=== PATIENT | female | born 1995 | race African-American/Black ===

== ENCOUNTER 2019-12-28 13:34 | Outpatient (CLI) | payer BC, SELFPAY ==
--- NOTE | ~2019-12-28 | US_ITS ---
EXAMINATION: US OB /maternal detail DATE: 12/28/2019 14:38 INDICATION: survey TECHNIQUE: Multiple obstetric sonographic images performed. FINDINGS: No prior studies for comparison. There is a single living fetus in breech presentation. The placenta is posterior without placenta pr evia. Amniotic fluid volume is subjectively normal. cardiac activity and movement is noted with a heart rate of 128 beats per minute. The following anatomy was identified as normal: 4 chamber heart 3 vessel cord cord insertion kidneys urinary bladder stomach spine diaphragm ventricles cisterna magna cerebellum The following biometric data were obtained: BPD: 44mm corresponds to gestational age 19 weeks 1 days. Head circumference: 159 mm corresponds to gestational age 18 weeks 5 days. Abdominal circumference: 138 mm corresponds to gestational age 19 weeks 1 days. Femur length: 29 mm corresponds to gestational age 18 weeks 5 days. Head circumference to abdominal circumference ratio: 1.15 (normal range for expected gestational age is 1.09-1.26). Estimated weight: 267 grams +/- 40 grams using Hadlock method. IMPRESSION: 1: Single living intrauterine with an estimated gestational age of 19weeks 0days by current ultrasound measurements, with an EDC of 05/23/2020 in breech presentation. 2. Normal survey. Reviewed, dictated and finalized at location A. IMPRESSION: 1: Single living intrauterine with an estimated gestational age of 19 weeks 0days by current ultrasound measurements, with an EDC of 05/23/2020 in br eech presentation. 2. Normal survey.
== END 2019-12-28 13:35 | disposition home or self-care (01) ==
PROVIDERS: Visit Provider Obstetrics & Gynecology
DX: Z34.90 Encounter for supervision of normal pregnancy, unspecified, unspecified trimester (principal); Z3A.19 19 weeks gestation of pregnancy
CPT/HCPCS: 76805

== ENCOUNTER 2020-02-28 16:13 | Outpatient (CLI) | payer BC, SELFPAY ==
--- NOTE | ~2020-02-28 | US_ITS ---
EXAMINATION: US OB follow up EXAM DATE: 02/28/2020 17:07 INDICATION: Routine care. Follow-up. Late 2nd trimester. TECHNIQUE: Pelvic obstetrical transabdominal sonogram was performed by a technologist. There are mu ltiple grayscale and Doppler images available for interpretation. Comparison is made to prior examina tion from 12/28/2019. FINDINGS: There is a single fetus identified in vertex presentation with a heart rate of 131 beats pe r minute. The placenta is located in the fundal position. There is no sonographic evidence of retrop lacental hemorrhage identified. The amniotic fluid index is 13.7 centimeters, which is normal. BIOMETRIC DATA: Biparietal diameter (BPD): 6.9cm ----------------> 27 weeks 5 days. Head circumference (HC): 25.3 cm ----------------> 27 weeks 3 days. Abdominal circumference (AC): 22.9 cm ----------> 27 weeks 2 days. Femur length (FL): 5.2 cm --------------------------> 27 weeks 4 days. These measurements are concordant. HC/AC ratio is 1.10 (The 5th -- 95th percentile range is 1.03-1.22. Estimated weight is 1071 g +/- 161 g. This is the 26th percentile when the currently reported clinical gestation age 27 weeks 5 days, clinical estimated date of delivery (RIYA-OPE) 05/24/2020 is us ed. estimated gestational age based on measurements from this exam is 27 weeks 4 days, with an estimated date of delivery (RIYA-AUA) 06/14. IMPRESSION: 1. Single fetus in vertex presentation with heart rate 131 beats per minute. 2. Estimated weight of 1071 grams, 26th percentile using the currently reported clinical gesta tion age of 27 weeks 5 days, RIYA(OPE) 05/24. 3. Normal LOVE of 13.7 cm. Reviewed, dictated and finalized at location A. IMPRESSION: 1. Single fetus in vertex presentation with heart rate 131 beats per minute. 2. Estimated weight of 1071 grams, 26th percentile using the currently r eported clinical gestation age of 27 weeks 5 days, RIYA(OPE) 12/. 3. Normal LOVE of 13.7 cm.
== END 2020-02-28 16:14 | disposition home or self-care (01) ==
PROVIDERS: PCP Obstetrics & Gynecology; Visit Provider Obstetrics & Gynecology
DX: Z34.92 Encounter for supervision of normal pregnancy, unspecified, second trimester (principal); Z3A.27 27 weeks gestation of pregnancy
CPT/HCPCS: 76816

== ENCOUNTER 2020-03-29 11:35 | Outpatient (CLI) | payer BC, SELFPAY ==
--- NOTE | ~2020-03-29 | US_ITS ---
EXAMINATION: US OB follow up DATE: 03/29/2020 12:34 INDICATION: Estimated size less than expected for estimated gestational age during third trimester pr egnancy. TECHNIQUE: Real-time ultrasound of the pelvis was performed. The interpreting radiologist was not pre sent for the study. COMPARISON: 02/28/2020 FINDINGS: There is a single living fetus in vertex presentation. The placenta is fundal. heart rate is 1 25 beats per minute (bpm). The amniotic fluid index is 15.4 cm, which is normal (5th%-95%: 8.6-24.2 cm at 22 weeks estimated gestational age). The following biometric data were obtained: BPD: 8.1 cm -> 32 weeks 5 days Head circumference: 25.9 cm -> 31 weeks 5 days Abdominal circumference: 28.7 cm -> 32 weeks 5 days Femur length: 6.1 cm -> 31 weeks 6 days These measurements are concordant. Head circumference to abdominal circumference ratio: 1.01 (normal range 0.96-1.13). Estimated weight: 1948 g (+/-) 292 g. or 4 lbs. 5 oz. (+/-) 10 oz. IMPRESSION: 1. Single living fetus in vertex presentation with heart rate of 125 bpm. 2. Normal amniotic fluid index of 15.4 cm. 3. Estimated weight is 49th percentile by Hadlock criteria when 05/24/2020 is used as the estima isaias date of delivery (RIYA). Please correlate with clinical information or earlier ultrasounds for mos t accurate RIYA. Reviewed, dictated and finalized at location A. IMPRESSION: 1. Single living fetus in vertex presentation with heart rate of 125 bpm. 2. Normal amniotic fluid index of 15.4 cm. 3. Estimated weight is 49th percentile by Hadlock criteria when 05/24/2020 is used as the estimated date of delivery (RIYA). Please correlate with clinica l information or earlier ultrasounds for most accurate RIYA.
== END 2020-03-29 11:36 | disposition home or self-care (01) ==
PROVIDERS: PCP Obstetrics & Gynecology; Visit Provider Obstetrics & Gynecology
DX: Z34.90 Encounter for supervision of normal pregnancy, unspecified, unspecified trimester (principal)
CPT/HCPCS: 76816

== ENCOUNTER 2020-05-12 09:23 | Inpatient (IN) | payer BC, SELFPAY ==
[2020-05-12] VITALS (65 sets, daily range): BP systolic 56–150; BP diastolic 21–107; PULSE 76–123; RESP 16; TEMP 36.6–37; O2SAT 100
--- NOTE | 2020-05-12 09:23 | LDADM ---
This patient, Mariana Gomez, was admitted to Labor/Delivery/Recovery 108 on 05/12/20 at 09:23. Plans for labor, pain management and were discussed with patient. Patient/family oriented to hospital policies and general routines including ID bracelet, bed and alarms, visiting hours, pain management, procedures, bathroom and other care routines, personal items, smoking policy, room service/diet and guest tray routines, security routines, and visiting hours. Patient/Family are encouraged to report perceived risks to care and to ask questions if they do not understand what they are told or what they should do. See OBIX for further documentation.
[2020-05-12] MEDS: LACTATED RINGERS 1,000 ML 125 ML IV CONT ×2 (10:13→10:20)
[2020-05-12 10:20] LABS: Basophils Percent Auto 0.2 % (0.2-1.2); Eosinophils Absolute Auto 0.1 K/mm3 (0-0.3); Eosinophils Percent Auto 1.5 % (0-4.4); Hematocrit 33.1 % (37.0-47.0); Hemoglobin 11.1 g/dL (12.0-15.0); Immature Granulocyte Absolute 0.03 K/mm3 (0.00-0.031); Immature Granulocyte Percent A 0.4 % (0-0.5); Lymphocytes Absolute Auto 2.02 K/mm3 (0.9-3.2); Mean Corpuscular HGB Conc 33.5 g/dl (32-36); Mean Corpuscular Hemoglobin 27.4 pg (26-34); Mean Corpuscular Volume 81.7 fl (80-100); Mean Platelet Volume 10.8 fl (7.4-10.4); Monocytes Absolute Auto 0.8 K/mm3 (0.1-0.6); Monocytes Percent Auto 9.6 % (2.6-8.5); Neutrophils Absolute Auto 5.4 K/mm3 (1.3-6.7); Neutrophils Percent Auto 64.3 % (45.5-73.1); Platelet Count Result 227 k/mm3 (150-375); Red Blood Count 4.05 M/mm3 (4.2-5.4); Red Cell Distribution Width 13.9 % (11.5-14.5); White Blood Count 8.4 K/mm3 (4.5-10.0)
[2020-05-12] MEDS: AMPICILLIN 2 GM/NS 100 ML 2 GM/100 ML BAG IVPB (10:20)
--- NOTE | 2020-05-12 10:24 | WPDANESEPP ---
Anes - Eval Pre Procedure Procedure: labor epidural Date/Time: 05/12/20 10:24 Surgeon: Herve Preop Diagnosis: pain during labor Pre Op Diagnosis: ROM Patient Data Age: 24 Gender: F Height: Weight: Allergies Allergy/AdvReac Type Severity Reaction Status Date / Time No Known Allergies Allergy Verified 04/24/20 12:47 Home Medications Medication Instructions Recorded Confirmed Type PNV cmb#95-ferrous fumarate-FA 1 tablet PO DAILY 04/24/20 04/24/20 History [] Laboratory Tests 05/12/20 05/12/20 10:14 10:14 WBC Pending RBC Pending Hgb Pending Hct Pending MCV Pending MCH Pending MCHC Pending RDW Pending Plt Count Pending MPV Pending Immature Gran % (Auto) Pending Neut % (Auto) Pending Lymph % (Auto) Pending Mcdowell % (Auto) Pending Eos % (Auto) Pending Baso % (Auto) Pending Lymph # (Auto) Pending Mcdowell # (Auto) Pending Eos # (Auto) Pending Baso # (Auto) Pending Abs Immat Gran (auto) Pending Absolute Neuts (auto) Pending Absolute Nucleated RBC Pending Nucleated RBC % Pending RPR Pending : gestational age (RIYA 05/24) Patient hx anesthesia problems: none Family hx anesthesia problems: none PMFSH Family History Family History (Updated 04/24/20 @ 12:48 by Chelsie Carrasco RN) Other No pertinent family history Social History Social History Substance use: never Gender identity (if verbalized by the patient): Female Spiritual care concerns: No Exam Day of Procedure 05/12/20 10:24
[2020-05-12] MEDS: ONDANSETRON INJ 4 MG/2 ML VIAL IV PUSH (10:52)
[2020-05-12] MEDS: OXYTOCIN 30 UNITS/NS 500 ML 30 UNITS/500 ML BAG 6 UNITS IV CONT (12:23)
[2020-05-12] MEDS: AMPICILLIN 1 GM/NS 50 ML 1 GM/50 ML BAG IVPB (14:23)
--- NOTE | 2020-05-12 15:51 | P.PCNOB_ITS ---
OB - Delivery Note Procedure Route of delivery: Laceration Description: Superficial Delivery repair: chromic Specimen: No Estimated blood loss (mL): 200 Anesthesia type: Epidural Disposition: floor Narrative: Patient prepped and draped in usual manner for this procedure. Maternal expulsive efforts delivered vertex in occiput posterior position. Nuchal cord was noted and readily reduced and the rest of baby was delivered with the cord cut and placenta delivering spontaneously. Cervix vagina vulva were inspected with a small laceration noted on the perineum. This was approximated using [id number] of 2 0 chromic suture. This point seizure was considered terminated. Immediate postoperative condition mother and baby both excellent. [place] Baby Weeks of gestation at delivery: 38 Infant gender: Male Weight (pounds): 8 Weight (ounces): 3 position: Right Occiput Posterior score one minute: 9 score five minutes: 9
--- NOTE | 2020-05-12 15:51 | WPDHPUPDATE1 ---
History and Physical Update Update Date/Time: 05/12/20 15:51 History and Physical has been reviewed, including an updated exam of the patient. There are NO changes in the patient's condition. Risks, benefits, and alternatives have been discussed and questions answered. Patient agrees to proceed with procedure.
--- NOTE | 2020-05-12 15:51 | WPDOBADMIT ---
Obstetrics - Admit Note Admission Note: record reviewed. No pertinent additions to the history and/or any subsequent changes in the physical findings that are not consistent with the expected course of the were found. Additions to the history and/or subsequent changes in the physical findings follow. None.
[2020-05-12] MEDS: OXYTOCIN 30 UNITS/NS 500 ML 30 UNITS/500 ML BAG 125 UNITS IV CONT (15:59)
[2020-05-12] MEDS: WITCH HAZEL 40 PADS 1 PAD TOPICAL (18:21)
[2020-05-12] MEDS: BENZOCAINE 20% AER SPR (*SP) 56 GM CAN 1 SPRAY TOPICAL (18:21)
--- NOTE | 2020-05-12 18:41 | OBPPTRN ---
Patient transferred to post room #285 via wheelchair. Support person present. Oriented to unit, room, information board, rooming in, admission packet and security measures. Patient verbalizes understanding. with patient.
[2020-05-12] MEDS: IBUPROFEN 600 MG TABLET PO (20:05)
[2020-05-13] MEDS: IBUPROFEN 600 MG TABLET PO ×3 (04:42→21:50)
[2020-05-13 05:03] LABS: Hematocrit 29.9 % (37.0-47.0)
[2020-05-13 07:02] LABS: Rapid Plasma Reagin Non-Reactive (NonReactive)
[2020-05-13 08:00] VITALS: BP 116/78; PULSE 78; PULSE 88; RESP 16; TEMP 36.8; O2SAT 100
[2020-05-13] MEDS: DOCUSATE SODIUM 100 MG CAPSULE PO ×2 (08:18→14:57)
[2020-05-13] MEDS: BENZOCAINE 20% AER SPR (*SP) 56 GM CAN 1 SPRAY TOPICAL (08:18)
[2020-05-13] MEDS: POLYSACCHARIDE IRON COMPLEX 150 MG CAPSULE PO ×2 (08:18→14:57)
[2020-05-13] MEDS: WITCH HAZEL 40 PADS 1 PAD TOPICAL (08:18)
[2020-05-13] MEDS: MULTIVIT/MIN/PREN/FOL AC/IRON TABLET 1 TAB PO (08:18)
--- NOTE | 2020-05-13 09:00 | PC.NURSE ---
Consult with pt., mother reports she is attempting to breast for some feedings. Mother states her plan was to breast and bottle feed. Mother has been independently putting to breast, reporting will not latch. Mother will then bottle feed. Offered assist with latch and pumping. Stressed the importance of breast stimulation for milk supply. Reviewed infant feeding cues, frequencies, duration of feedings, feeding elimination flow sheet, and signs of adequate intake. Mother has not been waking infant to feed as required, reporting infant is sleepy and not waking. Advised infant must be awoken to feed every 2-3 hours if and 3-4 hours if bottle feeding. Mother does not want assist with this feeding reporting she will bottle feed and breastfeed next feeding. Mother denies the need for assist with bottle feeding. Demonstrated stimulation techniques to wake for feeding. Requested mother call out next feeding for assist with latch and to review pumping.
--- NOTE | 2020-05-13 15:05 | PC.NURSE ---
Mother called out reporting she had attempted to breast without a successful feeding. Mother would like to pump. Breast pump provided due to mother's wishes. Instructions given on breast pump care and usage, pumping schedule, nipple care, and collection and storage of breast milk. Encouraged [id number], breast massage and manual expression to stimulate supply. Assessed patient for correct flange size, placement and draw. Patient verbalizes and demonstrates understanding of instructions.
--- NOTE | 2020-05-13 21:00 | PC.NURSE ---
Patient viewed the discharge video Mother & Baby Care, The First Two Weeks . Patient was given the opportunity and encouraged to ask questions. Patient verbalized understanding of information shared and has been given the mother/baby guide for home reference.
[2020-05-13 21:30] VITALS: BP 118/67; PULSE 76; RESP 16; TEMP 37.1; O2SAT 100
[2020-05-14] MEDS: IBUPROFEN 600 MG TABLET PO (04:49)
[2020-05-14] MEDS: DOCUSATE SODIUM 100 MG CAPSULE PO (07:59)
[2020-05-14] MEDS: MULTIVIT/MIN/PREN/FOL AC/IRON TABLET 1 TAB PO (07:59)
[2020-05-14 08:35] VITALS: BP 132/84; PULSE 81; RESP 16; TEMP 37; O2SAT 100
--- NOTE | 2020-05-14 09:03 | PM.OBPNVD ---
OB - PN: Subj Subjective Date/time seen: 05/14/20 09:03 Patient comments: no complaints and pain well controlled baby status: doing well and bottle feeding well [place] feeding status: exclusively bottle feeding OB - PN: Obj Data Labs CBC & Chem 7: 05/13/20 04:46 OB - PN A/P Assessment and Plan (1) Term delivered: Code(s): O80 - Encounter for full-term uncomplicated delivery Status: Acute Plan day: 2 Plan: routine care, discharge home and follow up 6 weeks Time Spent With Patient Time: Total time spent is greater than 50% in coordination of care (as documented) at patient's floor/unit and/or counseling patient: Time with patient: less than 15 minutes Review of Systems Review of Systems: All systems reviewed & are unremarkable except as noted in HPI and below Exam Const: General: cooperative, healthy appearing, comfortable, no acute distress, well developed, alert, awake and Physically active Nutritional Appearance: average body habitus Orientation/consciousness: oriented to person Limitations: no limitations HENMT: Head: normal to inspection Eyes: General: appearance normal, both eyes and all related structures Neck: Neck: normal visual inspection and full ROM Chest: Chest palpation & inspection: normal inspection of the chest Resp: Effort & Inspection: normal respiratory effort Cardio: Rate: regular rate Rhythm: regular rhythm GI: Inspection: normal to inspection GI Palp: Yes Soft to palpation Auscultation: normal bowel sounds : External Female Exam: normal external appearance Bimanual exam- vagina & uterus: non-tender Back/Spine/Pelvis: Back: no CVA tenderness Skin: General skin exam: normal color Neuro: General: patient oriented x3, gait normal, tone normal, moves all extremities, Normal light touch and pain sensation, no meningeal signs, no focal motor deficits and CN's II-XI intact bilaterally Extrem: General: normal to inspection, full ROM and no calf tenderness Psych: Appearance: grossly normal Mental Status: mental status grossly normal Speech and movement: Normal speech and movement present Affect: normal affect Attitude: cooperative Thought process: Normal thought process present Thought content: Yes Normal thought content present Insight: Good insight present (Psych) Judgement: Good judgement present (Psych)
--- NOTE | 2020-05-14 09:05 | PM.OBDSVD ---
DS: Admitting Diagnosis Admitting Diagnosis Admitting Diagnosis: ROM Term Spontaneous onset of labor DS: Discharge Diagnosis Discharge Diagnosis (1) Term delivered: Code(s): O80 - Encounter for full-term uncomplicated delivery Status: Acute OB - DS: Summary Hospital Course Time spent discussing smoking cessation with patient: 3 to 10 minutes OB Procedures : Ultrasound OB Procedures Intrapartum: Spontaneous Vag Delivery OB Procedures: : None Peripartum Data Delivery Method: Natural Vaginal Laceration Description: None Episiotomy description: None complications: none [place] 1: Gender: Male (Christian) Disposition of : home Status at Discharge Functional status at discharge: independent ambulation Overall status at discharge: patient is back to baseline Time Spent with Patient Time attestation: Total time spent providing and/or coordinating discharge services: Time spent: Less than 30 minutes Exam Const: General: cooperative, healthy appearing, comfortable, no acute distress, well developed, alert, awake and Physically active Nutritional Appearance: average body habitus and well nourished Orientation/consciousness: patient oriented x3 Limitations: no limitations HENMT: Head: normal to inspection Eyes: General: appearance normal, both eyes and all related structures Neck: Neck: normal visual inspection and full ROM Chest: Chest palpation & inspection: normal inspection of the chest Breast/axilla inspection: normal inspection of the breasts Resp: Effort & Inspection: normal respiratory effort Auscultation: clear to auscultation bilaterally Cardio: Rate: regular rate Rhythm: regular rhythm Heart sounds: S1 normal heart sound present and S2 normal heart sound present GI: Inspection: normal to inspection GI Palp: Yes Soft to palpation Auscultation: normal bowel sounds : External Female Exam: normal external appearance Bimanual exam- vagina & uterus: non-tender Back/Spine/Pelvis: Back: no CVA tenderness Skin: General skin exam: normal color Neuro: General: patient oriented x3, gait normal, tone normal, moves all extremities, Normal light touch and pain sensation, no meningeal signs, no focal motor deficits and CN's II-XI intact bilaterally Extrem: General: normal to inspection, full ROM and no calf tenderness Psych: Appearance: grossly normal Mental Status: mental status grossly normal Speech and movement: Normal speech and movement present Affect: normal affect Attitude: cooperative Thought process: Normal thought process present Thought content: Yes Normal thought content present Insight: Good insight present (Psych) Judgement: Good judgement present (Psych) Discharge Plan Discharge Attending physician on discharge: Bran Edgar Discharging Clinician: Bran Edgar Anticipated Discharge Date/Time: 05/14/20 09:09 Patient Disposition: Home, Self-Care Activity: unlimited and may drive after 2 weeks Diet: as tolerated and regular Wound Care Instructions: follow printed instructions Discharge Instructions: Routine Patient Instructions: Antibiotic Form Stand Alone Forms: General Discharge Information Follow-up/Referrals: Bran Edgar MD [Physician] - 3 Weeks Discharge Medications: New polysaccharide iron complex 150 mg iron Capsule 150 mg PO BIDWM Qty: 120 RF: 1 ibuprofen 600 mg Tablet 600 mg PO Q6H PRN (Reason: Cramping) Qty: 100 RF: 1 Continued PNV cmb#95-ferrous fumarate-FA [] 28 mg iron- 800 mcg Tablet 1 tablet PO DAILY Qty: 100 RF: 2 Date of admission: 05/12/20 09:23 Primary Care Provider: PHYSICIAN,SUPERVISOR [employer] Admitting Provider: Bran Edgar Attending physician on admission: Bran Edgar Condition: Stable
[2020-05-17 10:29] VITALS: BP 140/72; PULSE 80; RESP 20; TEMP 36.9; O2SAT 100
== END 2020-05-14 14:35 | disposition home or self-care (01) | DRG 807 ==
LOC: ANHLDR 11:50 → ANHOB2 18:44
PROVIDERS: Admitting Provider Obstetrics & Gynecology; Visit Provider Obstetrics & Gynecology
DX: O70.0 First degree perineal laceration during delivery (principal); Z37.0 Single live birth; Z3A.38 38 weeks gestation of pregnancy
CPT/HCPCS: 36415; 85014; 85018; 85025; 86592; 86850; 86900; 86901; A9270; J0290; J2405; J2590; J2795; J7120